=== PATIENT | female | born 1985 | race Two or more races ===

== ENCOUNTER 2017-05-12 14:24 | Day surgery (SDC) | payer BC ==
[~2017-05-12] VITALS: Ht 165.1 cm; Wt 44.8 kg
[~2017-05-12 14:24] MED LIST: LEVO100T87 PO
[2017-05-12 15:10] VITALS: Ht 165.1 cm; Wt 44.8 kg
[2017-05-12] MEDS ORDERED: LIDOCAINE 2% (SDV) 5 ML INJ ONE (15:17)
[2017-05-12] MEDS ORDERED: PROPOFOL 20 ML ONE ×2 (15:17→16:08)
[2017-05-12] MEDS ORDERED: MIDAZOLAM 1 MG/ML 2 ML INJ ONE (15:18)
[2017-05-12 15:35] VITALS: BP 103/67; PULSE 84; RESP 22
[2017-05-12 16:30] VITALS: BP 94/52; RESP 18
--- NOTE | 2017-05-13 05:10 | GILP ---
DATE OF PROCEDURE: 05/12/2017 PREOPERATIVE DIAGNOSES: 1. Abdominal pain. 2. Chronic heartburn. 3. Change in the bowel habits. POSTOPERATIVE DIAGNOSES: 1. Gastroesophageal reflux disease. 2. Gastritis. 3. Gastric mucosal biopsies were taken for Helicobacter pylori test. 4. Colonoscopy all the way to the cecum. 5. Internal hemorrhoids. 6. No colitis or neoplasm was identified. PROCEDURES: 1. Esophagogastroduodenoscopy and biopsy. 2. Colonoscopy. SURGEON: Linette Lehman MD INDICATION: Ms. Kari Rivas is a 31-year-old female patient who had upper abdominal pain and chronic heartburn not responding to therapy. She also noticed a change in the bowel habit with left lower quadrant abdominal pain. The patient was scheduled for endoscopy and colonoscopy for further evaluation. The procedures and possible complications were well explained to the patient. She understood and consented to the procedures. DESCRIPTION OF PROCEDURE: Under the influence of anesthesia, the gastroscope was carefully introduced into the esophagus and under direct vision it was advanced to the stomach and through the pylorus into the duodenal bulb, and descending duodenum. Findings: Esophagus: The patient had gastroesophageal reflux disease. Stomach: She had gastritis. Gastric mucosal biopsies were taken for H pylori test. Duodenum was normal. The colonoscope was carefully introduced in the rectum and under direct vision it was advanced all the way to the cecum. Findings: She had internal hemorrhoids. No colitis or neoplasm was identified. She tolerated the procedures very well and there were no complications from the procedures. At the end of procedure she was awake with stable vital signs and she was discharged home in care of her family. IMPRESSION: Please see postoperative diagnoses. PLAN: 1. Omeprazole 40 mg p.o. q.a.m. 2. Linzess 145 mcg p.o. daily, a.m., before breakfast. 3. Await H pylori test report. Dictated By: MD JCARLOS Huerta/vanessa/wilner /Document#: [id number]
== END 2017-05-12 18:09 | disposition home or self-care (01) ==
LOC: GIL 14:24
PROVIDERS: ATTEND Internal Medicine Gastroenterology
DX: R19.4 Change in bowel habit (principal); K21.9 Gastro-esophageal reflux disease without esophagitis; K29.70 Gastritis, unspecified, without bleeding; K64.8 Other hemorrhoids; E03.9 Hypothyroidism, unspecified
CPT/HCPCS: 43239; 45378; 84703; 87081; J2250